=== PATIENT | male | born 1955 ===

== ENCOUNTER 2019-11-21 12:59 | Emergency (ER) | payer BC, MEDICARE, SELFPAY ==
[2019-11-21] VITALS (7 sets, daily range): BP systolic 200–252; BP diastolic 108–131; PULSE 83–117; RESP 14–20; TEMP 36.9; O2SAT 96–98
--- NOTE | ~2019-11-21 | XR_ITS ---
EXAMINATION: XR foot RT 2V DATE: 11/21/2019 13:48 INDICATION: Right foot pain. TECHNIQUE: 4 views of right foot were obtained. COMPARISON: None. FINDINGS: Bone alignment is normal. No fracture. There is mild osteoarthritis of first metatarsophala ngeal joint. IMPRESSION: 1. Mild osteoarthritis of first metatarsophalangeal joint. Reviewed, dictated and finalized at location A.
--- NOTE | 2019-11-21 13:15 | ECG_ITS ---
Measurements Intervals [place] Rate: 94 P: 63 DE: 140 QRS: -4 QRSD: 102 T: 84 QT: 403 QTc: 505 Interpretive Statements SINUS RHYTHM ATRIAL PREMATURE COMPLEX NONSPECIFIC ST & T-WAVE ABNORMALITY- HIGH LATERAL LEADS BORDERLINE ECG Electronically Signed On 11-21-2019 15:28:13 CDT by Smith Russ D.O.
--- NOTE | 2019-11-21 13:41 | ED.GENADULT ---
HPI - General Adult General Chief complaint: Extremity Injury, Lower Stated complaint: swollen/painful right foot Time Seen by Provider: 11/21/19 13:18 Source: patient Limitations: no limitations History of Present Illness HPI narrative: Patient is a 63 y/o male complaining of right foot pain since 2 days ago. He describes the pain as sharp and rates it as 8/10. He states that touching, moving and ambulation aggravates his pain. There is no pain radiation. He has no fever, chills, headache, chest pain or SOB. Of note, he states that he has not seen a doctor for about 5 years since his last physician . Related Data Allergies Allergy/AdvReac Type Severity Reaction Status Date / Time peanut Allergy Unknown Nausea and Verified 11/21/19 13:20 Vomiting Sulfa (Sulfonamide Allergy Unknown Rash Verified 11/21/19 13:20 Antibiotics) Review of Systems Constitutional: Constitutional: Denies chills, Denies fever(s), Denies headache(s) and Denies weakness Eyes: Eyes: Denies blurry vision ENT: Denies headache(s) and Denies neck pain Cardiovascular: Cardiovascular: Denies chest pain and Denies dyspnea Respiratory: Respiratory: Denies cough and Denies dyspnea Gastrointestinal: Gastrointestinal: Denies abdominal pain, Denies diarrhea, Denies nausea and Denies vomiting Genitourinary: Genitourinary: Denies hematuria and Denies dysuria Musculoskeletal: Musculoskeletal: Reports as per HPI, Denies back pain, Reports arthralgias (right foot pain), Reports joint swelling (right foot swelling), Denies neck pain and Reports other Neurologic: Denies headache(s) and Denies weakness [facility] Family History Family History Other Diabetes mellitus Family history of coronary artery disease Family history of hypercholesterolemia Hypertension Social History Social History Alcohol intake: current Gender identity (if verbalized by the patient): Male Sexual Orientation (if Verbalized by the Patient): Straight or Heterosexual Exam Const: General: no acute distress and well developed Orientation/consciousness: oriented to person, oriented to place, oriented to time and patient oriented x3 HENMT: Head: normocephalic Ears: external ears normal General nose exam: Normal external nose present Eyes: General: appearance normal, both eyes and all related structures Conjunctivae: conjunctivae normal Neck: Neck: normal visual inspection and full ROM Chest: Chest palpation & inspection: normal inspection of the chest and no tenderness Resp: Effort & Inspection: normal respiratory effort Auscultation: clear to auscultation bilaterally Cardio: Rate: regular rate Rhythm: regular rhythm GI: GI Palp: No abdominal tenderness and Yes Soft to palpation Skin: General skin exam: normal color and turgor normal Neuro: General: oriented to person, oriented to place, oriented to time and patient oriented x3 Cognition (Neuro): normal cognition Extrem: General: normal to inspection, full ROM and no pedal edema Right lower extremity: foot Details: tenderness, warmth and edema Psych: Appearance: grossly normal Mental Status: mental status grossly normal Affect: normal affect Course Reevaluation(s) Reevaluation #1: Rechecked. Patient states that his foot feels better and want to go home. Informed patient that his BP is still very high and advised patient to be admitted or observed further in ED for better BP control. However, patient does not want to wait longer and wants to leave. He will leave against medical advice. He is awake, alert and competent to make medical decision for himself. Date: 11/21/19 Time: 16:05 Vital Signs Vital signs: Vital Signs Temperature 36.9 C 11/21/19 13:03 Pulse Rate 117 H 11/21/19 13:03 Respiratory Rate 20 11/21/19 13:03 Blood Pressure 252/131 H 11/21/19 13:03 Pulse Oximetry 97 11/21/19
[2019-11-21] MEDS: predniSONE 20 MG TABLET 40 MG PO (13:47)
[2019-11-21] MEDS: amLODIPine BESYLATE 5 MG TABLET 10 MG PO (13:47)
[2019-11-21] MEDS: COLCHICINE 0.6 MG TABLET 1.2 MG PO (13:47)
[2019-11-21 14:05] LABS: Basophils Absolute Auto 0.1 K/mm3 (0.0-0.1); Basophils Percent Auto 0.7 % (0.2-1.2); Eosinophils Absolute Auto 0.1 K/mm3 (0-0.3); Eosinophils Percent Auto 0.7 % (0-4.4); Hematocrit 44.9 % (42.0-52.0); Immature Granulocyte Absolute 0.02 K/mm3 (0.00-0.031); Immature Granulocyte Percent A 0.2 % (0-0.5); Lymphocytes Absolute Auto 1.91 K/mm3 (0.9-3.2); Lymphocytes Percent Auto 22.3 % (18.3-44.2); Mean Corpuscular HGB Conc 35.6 g/dl (32-36); Mean Corpuscular Hemoglobin 35.7 pg (26-34); Mean Corpuscular Volume 100.2 fl (80-100); Mean Platelet Volume 10.9 fl (7.4-10.4); Monocytes Absolute Auto 0.7 K/mm3 (0.1-0.6); Monocytes Percent Auto 8.5 % (2.6-8.5); Neutrophils Absolute Auto 5.8 K/mm3 (1.3-6.7); Neutrophils Percent Auto 67.6 % (45.5-73.1); Platelet Count Result 214 k/mm3 (150-375); Red Blood Count 4.48 M/mm3 (4.6-6.20); Red Cell Distribution Width 12.6 % (11.5-14.5); White Blood Count 8.6 K/mm3 (4.5-10.0)
[2019-11-21 14:20] LABS: Alanine Aminotransferase 32 U/L (4-50); Albumin Level 4.7 g/dL (3.5-5.1); Alkaline Phosphatase 75 U/L (38-126); Anion Gap 10 mmol/L (8-16); Aspartate Amino Transferase 37 U/L (17-59); Bilirubin,Total 0.7 mg/dL (0.2-1.3); Blood Urea Nitrogen 13 mg/dL (9-20); Carbon Dioxide 24 mmol/L (22-30); Chloride 103 mmol/L (98-107); Estimated CRCL calculation 81 ml/min; Estimated Glomerular Filt Rate > 60; Glucose 99 mg/dL (75-110); Potassium 3.5 mmol/L (3.4-5.0); Sodium 137 mmol/L (137-145); Uric Acid 8.2 mg/dL (3.5-8.5)
[2019-11-21 14:21] LABS: CRP < 0.5 mg/dL (<1.0); Lactic Acid Reflex 1.7 mmol/L (0.7-2.1)
[2019-11-21 14:35] LABS: Erythrocyte Sedimentation Rate 18 mm/hr (0-20)
[2019-11-21] MEDS: lisinopriL 20 MG TABLET PO (15:00)
[2019-11-21] MEDS: INDOMETHACIN 25 MG CAPSULE PO (15:00)
[2019-11-21] MEDS: hydroCHLOROthiazide 25 MG TABLET PO (15:00)
== END 2019-11-21 16:18 | disposition left against medical advice (07) ==
PROVIDERS: Emergency Medicine; Emergency Provider Emergency Medicine
DX: M10.9 Gout, unspecified (principal); I10 Essential (primary) hypertension
CPT/HCPCS: 36415; 73620; 80053; 83605; 84550; 85025; 85652; 86140; 93005; 99283; A9270; J7512